=== PATIENT | male | born 1940 | race Caucasian/White ===

== ENCOUNTER → 2016-04-29 | Outpatient (CLI) | payer MEDICARE ==
[~2016-04-29] MED LIST: ARIC5TAB PO; BETH25TA2 PO; BETH25TA3 PO; CARB25TA PO; CARB25TA9 PO; CLOP75TA PO; CLOT10TR6 SUCK-ON; COMT200T PO; DEPA500T3 PO; DIVA500T3 PO; DONE5TAB7 PO; ENTA1TAB PO; HYDR-3533 PO; LISI-519 PO; LOVA1TAB47 PO; LOVA20TA PO; MELA3CAP2 PO; MEMA1TAB2 PO; METF-324 PO; METF1000 PO; MIRA0.5T PO; NAME10TA PO; OMEP20TA PO; OMEP20TA39 PO; ONDA1TAB16 PO; PLAV75TA PO; PRIN5TAB PO; VESI10TA4 PO; ZOFR4TAB PO
[2016-04-29 11:47] LABS: HEMATOCRIT 43.9 % (39.0-51.0); MEAN CORPUSCULAR HEMOGLOBIN 29.1 PG (27.0-34.0); PLATELET COUNT 240 TH/MM3 (150-450); RED BLOOD COUNT 4.99 MIL/MM3 (4.50-5.90); RED CELL DISTRIBUTION WIDTH 16.3 % (11.6-17.2); REVIEW FLAG FINAL; WHITE BLOOD COUNT 5.5 TH/MM3 (4.0-11.0)
[2016-04-29 12:24] LABS: ALKALINE PHOSPHATASE 51 U/L (45-117); ALT (GPT) 10 U/L (12-78); ANION GAP 11 MEQ/L (5-15); AST (GOT) 11 U/L (15-37); BICARBONATE 28.7 MEQ/L (21.0-32.0); BLOOD UREA NITROGEN 9 MG/DL (7-18); CHLORIDE 100 MEQ/L (98-107); GLOMERULAR FILTRATION RATE 72 ML/MIN (>89); GLUCOSE,FASTING 155 MG/DL (74-99); HDL CHOLESTEROL 40.1 MG/DL (40.0-60.0); LDL CHOLESTEROL 89 MG/DL (0-99); POTASSIUM 4.1 MEQ/L (3.5-5.1); SODIUM (NA) 140 MEQ/L (136-145); TOTAL BILIRUBIN ADULT 0.3 MG/DL (0.2-1.0)
[2016-04-29 16:46] LABS: HEMOGLOBIN A1a 1.1 %; HEMOGLOBIN A1b 2.9 %; HEMOGLOBIN Ao 80.8 %; HEMOGLOBIN LA1C 2.2 %; HEMOGLOBIN P3 4.2 %
== END ==
LOC: ELAB 10:05
PROVIDERS: ATTEND Family Medicine
DX: I10 Essential (primary) hypertension (principal); E11.9 Type 2 diabetes mellitus without complications; E78.5 Hyperlipidemia, unspecified; R60.9 Edema, unspecified; G20 Parkinson's disease
CPT/HCPCS: 36415; 80053; 80061; 83036; 84443; 85027

== ENCOUNTER 2016-06-27 12:15 | Emergency (ER) | payer MEDICARE ==
[~2016-06-27] VITALS: Ht 177.8 cm; Wt 80.0 kg
[~2016-06-27 12:15] MED LIST changes: -ARIC5TAB PO; -BETH25TA3 PO; -CARB25TA PO; -CLOT10TR6 SUCK-ON; -COMT200T PO; -DEPA500T3 PO; -HYDR-3533 PO; -LOVA1TAB47 PO; -MELA3CAP2 PO; -METF-324 PO; -MIRA0.5T PO; -NAME10TA PO; -OMEP20TA39 PO; -ONDA1TAB16 PO; -PLAV75TA PO; -PRIN5TAB PO; -VESI10TA4 PO
[2016-06-27 12:17] VITALS: BP 128/71; PULSE 61; RESP 15; TEMP 97.9; O2SAT 98
--- NOTE | 2016-06-27 12:25 | PD ---
Physical Exam Time Seen by Provider: 12:23 Narrative 76yo M w c/o of both feet being blue this morning. Not currently. Pulses present bilaterally in triage. Denied fever, vomiting. Patient stable. Patient seen in triage. Awaiting bed placement. Data Data Last Documented VS Vital Signs Date Time Temp Pulse Resp B/P Pulse Ox O2 Delivery O2 Flow Rate FiO2 06/27/16 12:17 97.9 61 15 128/71 98 MDM Supervised Visit with SALEEM: Mily Connelly Jun 27, 2016 12:25
--- NOTE | 2016-06-27 12:36 | PD ---
HPI Chief Complaint: Medical Clearance Time Seen by Provider: 12:36 Travel History International Travel<30 days: No Contact w/Intl Traveler<30days: No Traveled to known affect area: No History of Present Illness HPI 76-year-old male with history of dementia, Parkinson's, hydrocephalus with shunt placement, hypertension, diabetes, presents to emergency department for evaluation of lower extremity discoloration and equal sensation. Patient states he noticed a purplish tint to his bilateral lower extremities distal to his knees yesterday. He states today when he woke up and got out of bed and had been walking around the lower extremity became more purple/blue and were very cold. His contacted his primary care provider Dr. Reeves who advised to come to the emergency department. Patient denies any pain associated with this. States that he does not have neuropathy and is able to completely feel his lower extremities. Denies history of PAD or previous occlusion. He has no other symptoms to report at this time. PFSH Past Medical History Hx Anticoagulant Therapy: Yes (PLAVIX) Arthritis: Yes Autoimmune Disease: No Blood Disorders: No Depression: Yes Heart Rhythm Problems: No Cancer: No Cardiovascular Problems: No High Cholesterol: No Chemotherapy: No Chest Pain: No Congestive Heart Failure: No Cerebrovascular Accident: No Dementia: Yes Diabetes: Yes Diminished Hearing: No Endocrine: Yes Gastrointestinal Disorders: Yes (GERD) Glaucoma: No Genitourinary: No Headaches: Yes Hepatitis: No Hiatal Hernia: No Hypertension: Yes Immune Disorder: No Musculoskeletal: No Neurologic: Yes (PARKINSON'S, ATAXIA, DEMENTIA, HYDROCEPHALUS) Psychiatric: Yes (DEMENTIA) Reproductive: No Respiratory: No Immunizations Current: No Migraines: No Myocardial Infarction: No Radiation Therapy: No Seizures: No Thyroid Disease: No Past Surgical History AICD: No Arteriovenous Shunt: No Eye Surgery: Yes (ALFREDITO. CATARACT EXTRACT.) Genitourinary Surgery: No Insulin Pump: No Joint Replacement: No Oral Surgery: Yes (DENTAL) Pacemaker: No Other Surgery: Yes Social History Alcohol Use: Yes (4 DRINKS PER WEEK) Tobacco Use: No Substance Use: No Allergies-Medications (Allergen,Severity, Reaction): Coded Allergies: Levaquin (Verified Allergy, Severe, 06/27/16) Pentothal (Verified Allergy, Severe, 06/27/16) Reported Meds & Prescriptions Reported Meds & Active Scripts Active Reported Lovastatin 20 Mg Tab 20 Mg PO DAILY Memantine 10 Mg Tab 10 Mg PO DAILY Metformin (Metformin HCl) 1,000 Mg Tab 1,000 Mg PO DAILY With a meal Clopidogrel (Clopidogrel Bisulfate) 75 Mg Tab 75 Mg PO DAILY Donepezil 5 Mg Tab 5 Mg PO HS Zofran (Ondansetron HCl) 4 Mg Tab 4 Mg PO Q6HR PRN Bethanechol 25 Mg Tab 25 Mg PO QID Carbidopa-Levodopa 25-100 Mg Tab 1 Tab PO Q8HR Divalproex ER (Divalproex Sodium) 500 Mg Tab 500 Mg PO DAILY Entacapone 200 Mg Tab 200 Mg PO DAILY administered concomitantly with each levodopa/carbidopa dose Omeprazole 20 Mg Tab 20 Mg PO DAILY Lisinopril 5 Mg Tab 5 Mg PO DAILY Review of Systems Except as stated in HPI: all other systems reviewed are Neg Physical Exam Narrative GENERAL: Well-nourished elderly male patient, ambulatory and in no acute distress SKIN: Focused skin assessment warm/dry. HEAD: Atraumatic. Normocephalic. EYES: Pupils equal and round. No scleral icterus. No injection or drainage. ENT: No nasal bleeding or discharge. Mucous membranes pink and moist. NECK: Trachea midline. No JVD. CARDIOVASCULAR: Regular rate and rhythm. No murmur appreciated. RESPIRATORY: No accessory muscle use. Clear to auscultation. Breath sounds equal bilaterally. GASTROINTESTINAL: Abdomen soft, non-tender, nondistended. Hepatic and splenic margins not palpable. MUSCULOSKELETAL: No obvious deformities. No clubbing. No cyanosis. No edema. Distal pulses are palpable. Cap refill is within normal limits. Distal extremities are warm. NEUROLOGICAL: Awake and alert. No obvious cranial nerve deficits. Motor grossly within normal limits. Normal speech. PSYCHIATRIC: Appropriate mood and affect; insight and judgment normal. Data Data Last Documented VS Vital Signs Date Time Temp Pulse Resp B/P Pulse Ox O2 Delivery O2 Flow Rate FiO2 06/27/16 18:00 84 16 148/62 96 Room Air 06/27/16 15:45 98.6 Orders Iv Access Insert/Monitor (06/27/16 12:51) Complete Blood Count With Diff (06/27/16 12:51) Comprehensive Metabolic Panel (06/27/16 12:51) Coag Profile (06/27/16 12:51) Electrocardiogram (06/27/16 ) Cta Runoff W Iv Contrast W 3d (06/27/16 ) Iohexol 350 Inj (Omnipaque 350 Inj) (06/27/16 16:12) Labs Laboratory Tests Test 06/27/16 13:45 White Blood Count 5.6 TH/MM3 Red Blood Count 4.66 MIL/MM3 Hemoglobin 14.2 GM/DL Hematocrit 41.8 % Mean Corpuscular Volume 89.7 FL Mean Corpuscular Hemoglobin 30.5 PG Mean Corpuscular Hemoglobin 34.1 % Concent Red Cell Distribution Width 16.3 % Platelet Count 206 TH/MM3 Mean Platelet Volume 10.0 FL Neutrophils (%) (Auto) 59.2 % Lymphocytes (%) (Auto) 25.7 % Monocytes (%) (Auto) 11.2 % Eosinophils (%) (Auto) 2.7 % Basophils (%) (Auto) 1.2 % Neutrophils # (Auto) 3.3 TH/MM3 Lymphocytes # (Auto) 1.4 TH/MM3 Monocytes # (Auto) 0.6 TH/MM3 Eosinophils # (Auto) 0.2 TH/MM3 Basophils # (Auto) 0.1 TH/MM3 CBC Comment DIFF FINAL Differential Comment Prothrombin Time 10.9 SEC Prothromb Time International 1.0 RATIO Ratio Activated Partial 24.3 SEC Thromboplast Time Sodium Level 138 MEQ/L Potassium Level 5.0 MEQ/L Chloride Level 100 MEQ/L Carbon Dioxide Level 25.7 MEQ/L Anion Gap 12 MEQ/L Blood Urea Nitrogen 10 MG/DL Creatinine 0.95 MG/DL Estimat Glomerular Filtration 77 ML/MIN Rate Random Glucose 175 MG/DL Calcium Level 9.2 MG/DL Total Bilirubin 0.4 MG/DL Aspartate Amino Transf 37 U/L (AST/SGOT) Alanine Aminotransferase 29 U/L (ALT/SGPT) Alkaline Phosphatase 57 U/L Total Protein 7.1 GM/DL Albumin 3.4 GM/DL [facility] Medical Decision Making Medical Screen Exam Complete: Yes Emergency Medical Condition: Yes Medical Record Reviewed: Yes Differential Diagnosis PAD versus PVD versus occlusion versus embolism Narrative Course 76-year-old male presents to the emergency department for evaluation. Patient appears without distress. Initially his lower extremities are warm to touch with palpable pulses. The patient did get up and go to the restroom and when he came back to that there were areas of coolness and the distal lower extremities had a cyanotic appearance to them. Pulses remained palpable. I discussed the patient my attending physician Dr. Mendez who also assessed the patient. She recommends that be performed with CT of the bilateral lower extremities. This is ordered. CBC and BMP are without acute concern. CT a of the bilateral lower extremities shows areas of high-grade stenosis but the vessels do remain patent. This was discussed with the patient and his . I have encouraged them to follow-up with their primary care provider seek vascular surgery evaluation. They agreed to return immediately with any acute worsening of symptoms. Diagnosis Primary Impression: Stenosis of lower extremity artery Additional Impression: PAD (peripheral artery disease) Referrals: Primary Care Physician Vascular Surgeon Patient Instructions: General Instructions, Peripheral Vascular Disease (ED) Additional Instructions: Follow-up your primary care provider Seek vascular surgery evaluation Return immediately with any acute worsening of symptoms Med/Other Pt SpecificInfo: No Change to Meds Disposition: 01 DISCHARGE HOME Condition: Stable Cheney,Rina YOUNG Jun 27, 2016 12:36
[2016-06-27 14:11] LABS: AUTOMATED NEUTROPHIL # 3.3 TH/MM3 (1.8-7.7); BASOPHIL # 0.1 TH/MM3 (0-0.2); BASOPHIL % 1.2 % (0.0-2.0); EOSINOPHIL # 0.2 TH/MM3 (0-0.4); EOSINOPHIL % 2.7 % (0.0-4.0); HEMATOCRIT 41.8 % (39.0-51.0); HEMO FLAGS DIFF FINAL; LYMPH % 25.7 % (9.0-44.0); LYMPHOCYTE # 1.4 TH/MM3 (1.0-4.8); MEAN CELL VOLUME 89.7 FL (80.0-100.0); MEAN CORPUSCULAR HEMOGLOBIN 30.5 PG (27.0-34.0); MEAN CORPUSCULAR HGB CONC 34.1 % (32.0-36.0); MONO % 11.2 % (0.0-8.0); NEUT % 59.2 % (16.0-70.0); PLATELET COUNT 206 TH/MM3 (150-450); RED BLOOD COUNT 4.66 MIL/MM3 (4.50-5.90); RED CELL DISTRIBUTION WIDTH 16.3 % (11.6-17.2); WHITE BLOOD COUNT 5.6 TH/MM3 (4.0-11.0)
[2016-06-27 14:22] LABS: APTT (PATIENT) 24.3 SEC (24.3-30.1); PROTHROMBIN TIME - PATIENT 10.9 SEC (9.8-11.6)
[2016-06-27 14:29] LABS: ALKALINE PHOSPHATASE 57 U/L (45-117); ALT (GPT) 29 U/L (12-78); ANION GAP 12 MEQ/L (5-15); AST (GOT) 37 U/L (15-37); BICARBONATE 25.7 MEQ/L (21.0-32.0); BLOOD UREA NITROGEN 10 MG/DL (7-18); CHLORIDE 100 MEQ/L (98-107); GLOMERULAR FILTRATION RATE 77 ML/MIN (>89); SODIUM (NA) 138 MEQ/L (136-145); TOTAL BILIRUBIN ADULT 0.4 MG/DL (0.2-1.0)
[2016-06-27 15:45] VITALS: BP 144/85; PULSE 54; RESP 16; TEMP 98.6; O2SAT 100
[2016-06-27] MEDS ORDERED: IOHEXOL 350 MG/ML 10 ML VIAL (for RAD DIAG) IV ONE (16:12)
--- NOTE | 2016-06-27 17:45 | RADRPT ---
EXAM DATE/TIME: 06/27/2016 15:15 [facility] COMPARISON: No previous studies available for comparison. INDICATIONS : Discoloration of lower extremities. IV CONTRAST: 75 cc Omnipaque 350 (iohexol) IV RADIATION DOSE: 14.22 CTDIvol (mGy) MEDICAL HISTORY : Parkinson's. Dementia. Hypertension. Diabetes SURGICAL HISTORY : Shunt ENCOUNTER: Initial ACUITY: 1 day PAIN SCALE: 0/10 LOCATION: Bilateral runoff TECHNIQUE: Volumetric scanning was performed using a multi-row detector CT scanner. The data was post processed with a variety of visualization algorithms including full volume maximum intensity pr ojection, multi-planar sliding thin slab reformation, curved planar reformation, and surface renderin g techniques. Using automated exposure control and adjustment of the mA and/or kV according to patie nt size, radiation dose was kept as low as reasonably achievable to obtain optimal diagnostic quality images. FINDINGS: ABDOMINAL AORTA: Scattered atherosclerotic calcification but the abdominal aorta is normal caliber t hroughout its length. Single bilateral renal arteries are patent. Mesenteric vessels are patent. PELVIS: Iliac vessels show calcification but are patent bilaterally. RIGHT LOWER EXTREMITY: Profunda and the SFA are patent with scattered atherosclerotic calcification . There is some calcification in the above knee popliteal with mild stenosis but the popliteal is pa tent down to the trifurcation. On the delayed images, there is three-vessel runoff but I believe mita t there is a significant stenosis in the proximal posterior tibial which does appear to be the domina nt vessel. The anterior tibial and peroneal vessels are more diminutive but are patent. LEFT LOWER EXTREMITY: Again, the profunda and SFA are patent. Mild atherosclerotic irregularity of the above knee popliteal but the popliteal is patent down to the trifurcation vessels with three-vess el runoff. The most robust of the runoff vessels is the posterior tibial. MISCELLANEOUS: Also noted are some bibasilar atelectasis changes, diverticular disease of the sigmo id without diverticulitis. There appears to be a ventricular peritoneal catheter in the right abdome n. The right SI joint is secured with multiple osseous screws. CONCLUSION: 1. Inflow is widely patent down to the trifurcation with some atherosclerotic irregularity of the abo ve knee popliteals bilaterally. I do not believe it is flow limiting, however. 2. There is three-vessel runoff bilaterally with high-grade stenosis in the proximal posterior tibial on the right. Otherwise, runoff vessels are patent. 3. Diverticular disease of the sigmoid without diverticulitis. 4. Atelectatic changes in the lung bases bilaterally. Rian Arshad MD on June 27, 2016 at 17:21 Board Certified Radiologist. This report was verified electronically.
[2016-06-27 18:00] VITALS: BP 148/62; PULSE 84; RESP 16; O2SAT 96
--- NOTE | 2016-06-28 18:49 | EKG ---
Date Performed: 06/27/2016 Time Performed: 14:32:12 PTAGE: 76 years EKG: Ectopic atrial rhythm Short MD interval without prexcitation Slight nonspecific intraventri cular conduction delay ABNORMAL ECG PREVIOUS TRACING : 12/31/2015 03.17 DOCTOR: Farhad Hutchinson Interpretating Date/Time 06/28/2016 18:48:16
== END 2016-06-27 19:13 | disposition home or self-care (01) ==
LOC: NEPD 12:15
DX: I70.203 Unspecified atherosclerosis of native arteries of extremities, bilateral legs (principal); I73.9 Peripheral vascular disease, unspecified; R94.31 Abnormal electrocardiogram [ECG] [EKG]; E11.9 Type 2 diabetes mellitus without complications; I10 Essential (primary) hypertension; F03.90 Unspecified dementia, unspecified severity, without behavioral disturbance, psychotic disturbance, mood disturbance, and anxiety; Z79.01 Long term (current) use of anticoagulants
CPT/HCPCS: 75635; 80053; 85025; 85610; 85730; 93005; 99285; Q9967

== ENCOUNTER → 2016-09-03 | Outpatient (CLI) | payer MEDICARE ==
[2016-09-03 12:03] LABS: HEMATOCRIT 43.9 % (39.0-51.0); MEAN CELL VOLUME 90.1 FL (80.0-100.0); MEAN CORPUSCULAR HEMOGLOBIN 30.3 PG (27.0-34.0); MEAN CORPUSCULAR HGB CONC 33.7 % (32.0-36.0); PLATELET COUNT 247 TH/MM3 (150-450); RED BLOOD COUNT 4.87 MIL/MM3 (4.50-5.90); RED CELL DISTRIBUTION WIDTH 14.7 % (11.6-17.2); REVIEW FLAG FINAL; WHITE BLOOD COUNT 5.6 TH/MM3 (4.0-11.0)
[2016-09-03 12:46] LABS: ALT (GPT) 16 U/L (12-78); ANION GAP 9 MEQ/L (5-15); AST (GOT) 17 U/L (15-37); BICARBONATE 30.4 MEQ/L (21.0-32.0); BLOOD UREA NITROGEN 11 MG/DL (7-18); CHLORIDE 102 MEQ/L (98-107); GLOMERULAR FILTRATION RATE 68 ML/MIN (>89); GLUCOSE,FASTING 128 MG/DL (74-99); POTASSIUM 4.1 MEQ/L (3.5-5.1); SODIUM (NA) 141 MEQ/L (136-145)
[2016-09-03 12:55] LABS: ALKALINE PHOSPHATASE 49 U/L (45-117); LDL CHOLESTEROL 73 MG/DL (0-99); TOTAL BILIRUBIN ADULT 0.4 MG/DL (0.2-1.0)
[2016-09-03 14:26] LABS: HEMOGLOBIN A1b 2.9 %; HEMOGLOBIN Ao 81.7 %; HEMOGLOBIN LA1C 2.2 %; HEMOGLOBIN P3 4.2 %
== END ==
LOC: ELAB 10:07
PROVIDERS: ATTEND Family Medicine
DX: R60.9 Edema, unspecified (principal); I10 Essential (primary) hypertension; E11.9 Type 2 diabetes mellitus without complications; E78.5 Hyperlipidemia, unspecified; G20 Parkinson's disease; G91.2 (Idiopathic) normal pressure hydrocephalus
CPT/HCPCS: 36415; 80053; 80061; 83036; 84443; 85027

== ENCOUNTER → 2017-01-17 | Outpatient (CLI) | payer MEDICARE ==
[~2017-01-17] MED LIST changes: -OMEP20TA PO; +OMEP20TA93 PO
[2017-01-17 08:51] LABS: HEMATOCRIT 46.5 % (39.0-51.0); MEAN CELL VOLUME 93.4 FL (80.0-100.0); MEAN CORPUSCULAR HEMOGLOBIN 30.8 PG (27.0-34.0); PLATELET COUNT 262 TH/MM3 (150-450); RED BLOOD COUNT 4.98 MIL/MM3 (4.50-5.90); RED CELL DISTRIBUTION WIDTH 15.2 % (11.6-17.2); REVIEW FLAG FINAL; WHITE BLOOD COUNT 5.5 TH/MM3 (4.0-11.0)
[2017-01-17 09:52] LABS: BICARBONATE 26.9 MEQ/L (21.0-32.0)
[2017-01-17 10:00] LABS: ANION GAP 11 MEQ/L (5-15); AST (GOT) 20 U/L (15-37); BLOOD UREA NITROGEN 10 MG/DL (7-18); CHLORIDE 101 MEQ/L (98-107); GLOMERULAR FILTRATION RATE 69 ML/MIN (>89); GLUCOSE,FASTING 121 MG/DL (74-99); POTASSIUM 4.3 MEQ/L (3.5-5.1); SODIUM (NA) 139 MEQ/L (136-145)
[2017-01-17 10:11] LABS: ALKALINE PHOSPHATASE 46 U/L (45-117); ALT (GPT) 25 U/L (12-78); LDL CHOLESTEROL 74 MG/DL (0-99); TOTAL BILIRUBIN ADULT 0.3 MG/DL (0.2-1.0)
[2017-01-17 16:18] LABS: HEMOGLOBIN A1a 0.9 %; HEMOGLOBIN A1b 2.9 %; HEMOGLOBIN LA1C 2.3 %; HEMOGLOBIN P3 4.4 %
== END ==
LOC: ELAB 07:45
PROVIDERS: ATTEND Family Medicine
DX: I73.9 Peripheral vascular disease, unspecified (principal); I10 Essential (primary) hypertension; E11.9 Type 2 diabetes mellitus without complications; E78.5 Hyperlipidemia, unspecified; J30.9 Allergic rhinitis, unspecified; G20 Parkinson's disease; G91.2 (Idiopathic) normal pressure hydrocephalus
CPT/HCPCS: 36415; 80053; 80061; 83036; 84443; 85027

== ENCOUNTER → 2017-05-26 | Outpatient (CLI) | payer MEDICARE ==
[2017-05-26 14:15] LABS: HEMATOCRIT 44.7 % (39.0-51.0); MEAN CELL VOLUME 90.9 FL (80.0-100.0); MEAN CORPUSCULAR HEMOGLOBIN 30.5 PG (27.0-34.0); MEAN CORPUSCULAR HGB CONC 33.5 % (32.0-36.0); PLATELET COUNT 227 TH/MM3 (150-450); RED BLOOD COUNT 4.91 MIL/MM3 (4.50-5.90); RED CELL DISTRIBUTION WIDTH 15.1 % (11.6-17.2); WHITE BLOOD COUNT 5.6 TH/MM3 (4.0-11.0)
[2017-05-26 14:42] LABS: ALBUMIN 3.8 GM/DL (3.4-5.0); ALT (GPT) 20 U/L (12-78); AST (GOT) 12 U/L (15-37); BICARBONATE 30.7 MEQ/L (21.0-32.0); BLOOD UREA NITROGEN 10 MG/DL (7-18); CALCIUM 8.9 MG/DL (8.5-10.1); CHLORIDE 101 MEQ/L (98-107); CHOLESTEROL 147 MG/DL (120-200); CREATININE 1.17 MG/DL (0.60-1.30); GLOMERULAR FILTRATION RATE 61 ML/MIN (>89); GLUCOSE,FASTING 118 MG/DL (74-99); SODIUM (NA) 141 MEQ/L (136-145)
[2017-05-26 14:52] LABS: ALKALINE PHOSPHATASE 45 U/L (45-117); CHOLESTEROL/ HDL RATIO 3.62 RATIO; HDL CHOLESTEROL 40.5 MG/DL (40.0-60.0); LDL CHOLESTEROL 62 MG/DL (0-99); TOTAL BILIRUBIN ADULT 0.3 MG/DL (0.2-1.0); TOTAL PROTEIN 7.1 GM/DL (6.4-8.2); TRIGLYCERIDES 221 MG/DL (42-150)
== END ==
LOC: ELAB 09:43
PROVIDERS: ATTEND Family Medicine
DX: I73.9 Peripheral vascular disease, unspecified (principal); I10 Essential (primary) hypertension; E78.5 Hyperlipidemia, unspecified; J30.9 Allergic rhinitis, unspecified; E11.9 Type 2 diabetes mellitus without complications; G20 Parkinson's disease; G91.2 (Idiopathic) normal pressure hydrocephalus; Z68.31 Body mass index [BMI] 31.0-31.9, adult
CPT/HCPCS: 36415; 80053; 80061; 84443; 85027